=== PATIENT | male | born 1960 | race Caucasian/White ===

== ENCOUNTER → 2019-06-26 | Outpatient (CLI) | payer OTHER ==
[~2019-06-26] VITALS: Ht 188 cm; Wt 106.6 kg
[~2019-06-26] MED LIST: CELEXA10 MG PO; PRILOSEC10 MG PO
[2019-06-26 12:14] VITALS: BP 161/85; PULSE 69
[2019-06-26 12:54] VITALS: BP 162/100; PULSE 59
[2019-06-26 12:59] VITALS: BP 156/95
--- NOTE | 2019-06-26 13:10 | NUR ---
WENT OVER DC INSTRUCTIONS WITH PT. ALL QUESTIONS ANSWSERED. PT LEAVES AMBULATROY WITH STAFF TO POV.
== END ==
LOC: COL.RAD 11:49
DX: R59.0 Localized enlarged lymph nodes (principal)

== ENCOUNTER 2019-09-18 17:59 | Emergency (ER) | payer OTHER ==
[~2019-09-18] VITALS: Ht 188 cm; Wt 95.0 kg
[2019-09-18] MEDS ORDERED: ELIQUIS 5MG PO (21:04)
[2019-09-18 21:11] VITALS: BP 109/70; PULSE 101; TEMP 98.9
== END 2019-09-18 21:22 | disposition home or self-care (01) ==
LOC: COL.ER 17:59
DX: I82.461 Acute embolism and thrombosis of right calf muscular vein (principal)
CPT/HCPCS: J1650

== ENCOUNTER 2019-09-27 07:19 | Outpatient (CLI) | payer OTHER ==
[~2019-09-27] VITALS: Ht 188 cm; Wt 78.0 kg
[~2019-09-27 07:19] MED LIST changes: +ELIQUIS 5MG PO
[2019-09-27] MEDS ORDERED: MS CONTIN 660 MG/TAB PO (07:50)
[2019-09-27] MEDS ORDERED: OXYCODONE H5 MG/5 ML PO (07:51)
[2019-09-27] MEDS ORDERED: TYLENOL ELIX32 MG/M2 PO (07:53)
[2019-09-27] MEDS ORDERED: XANAX .25M0.25 MG/TA PO (07:54)
[2019-09-27] MEDS ORDERED: ZOFRAN8 MG PO (07:54)
[2019-09-27 08:09] VITALS: BP 119/68; PULSE 77; TEMP 97.7
--- NOTE | 2019-09-27 09:45 | NUR ---
INFUISON COMPLETED, NO C/O OR CHANGES, PORT FLUSHED PER PROTOCOL
== END 2019-09-27 11:29 | disposition home or self-care (01) ==
LOC: EUO 07:19
DX: C32.1 Malignant neoplasm of supraglottis (principal)
CPT/HCPCS: J1644; J7030

== ENCOUNTER → 2020-05-25 | Outpatient (CLI) | payer OTHER ==
[~2020-05-25] MED LIST changes: +MS CONTIN 660 MG/TAB PO; +OXYCODONE H5 MG/5 ML PO; +TYLENOL ELIX32 MG/M2 PO; +XANAX .25M0.25 MG/TA PO; +ZOFRAN8 MG PO
== END ==
LOC: ZCOL.LAB 15:47
DX: Z20.828 Contact with and (suspected) exposure to other viral communicable diseases (principal)